=== PATIENT | male | born 1935 | race Caucasian/White ===

== ENCOUNTER 2017-11-01 11:38 | Emergency (ER) | payer MEDICARE, SELFPAY ==
[2017-11-01] VITALS (9 sets, daily range): BP systolic 92–135; BP diastolic 54–70; PULSE 101–117; RESP 16–20; TEMP 36.3–36.8; O2SAT 94–99; BMI 20.7
--- NOTE | 2017-11-01 | CT_ITS ---
CT abdomen pelvis wo con CLINICAL INDICATION: Abdominal pain with vomiting. History of colon cancer ORDERING PHYSICIAN: Mauro Hayes MD PATIENT AGE: 82 years COMPARISON: 09/29/2016 TECHNIQUE: Axial images obtained with sagittal and coronal reformats. PROCEDURE: Oral Contrast: None IV Contrast: None . FINDINGS: There is a subpleural 9 mm noncalcified nodule in the right middle lobe and an 8 mm noncalcified nodule in the right upper lobe laterally and inferiorly. There are atelectatic changes in the right lung base. Gallbladder is nonvisualized persistent surgically removed. The liver, spleen, and adrenal glands have an unremarkable unenhanced appearance. There is mild diffuse pancreatic atrophy. Postsurgical changes are present within the abdomen with multiple clips in the right upper quadrant. There is severe right hydronephrosis and hydroureter. Extensive femur hardening artifact is present in the pelvis from right hip prosthesis obscuring fine detail of the distal ureter. There is some thickening of the anterior aspect of the urinary bladder and probable thickening at the base of the urinary bladder.. Extensive postsurgical changes are present in the pelvis with increased soft tissue density in the perineal region with thickening of the presacral fat and increased density in the perirectal region. The thickening of the presacral fat appears slightly worse compared to the previous exam. There has been a prior left nephrectomy with partially calcified oval density in the renal bed. There has been prior partial colectomy small bowel sigmoid anastomosis. The sigmoid colon shows mild distention. There are distended loops of small bowel present throughout with air-fluid levels consistent with partial small bowel obstruction. Transition point is not identified. There are scattered small lymph nodes in the mesentery's. There is a new area of destruction involving the superior pubic ramus on the left medially in the inferior pubic ramus on the left medially there is also destructive process involving the mid aspect of the right inferior pubic ramus. These findings are consistent with metastatic disease in this patient with history of colon cancer. IMPRESSION: 1. At least 2 right-sided pulmonary nodules suspicious for metastasis in the right lower lobe and right upper lobe inferiorly 2. Severe right-sided hydronephrosis and hydroureter. There is thickening of at least the anterior aspect of the urinary bladder suspicious for neoplasm. There may be thickening also posteriorly difficult to evaluate due to artifact from the hip prosthesis. 3. There is increased soft tissue density in the inferior aspect of the pelvis. This is difficult to evaluate due to the overlying artifact however, this does appear more prominent than when compared to the previous study and is suspicious for neoplasm. This is at the base of the urinary bladder and perineal area and in the perirectal and presacral region. 4. Partial small bowel obstruction. Transition point is not identified. 5. Lytic lesions of the left superior and inferior pubic ramus and right inferior pubic ramus consistent with metastatic disease
--- NOTE | 2017-11-01 11:55 | [facility].EDGENADL ---
ED Disposition Clinical Impression: Partial small bowel obstruction Urinary tract infection Qualifiers: Urinary tract infection type: site unspecified Hematuria presence: with hematuria Qualified Code(s): N39.0 - Urinary tract infection, site not specified; R31.9 - Hematuria, unspecified Disposition: Xfer Short-Term Hosp Condition on Discharge: Fair Referrals: Peng Ray MD [Primary Care Provider] - - Critical Care Critical Care Time: No Attestation: On 11/01/17, the high probability of a clinically significant, sudden or life threatening deterioration of the following system(s) required my full and direct attention, intervention and personal management. The time I documented below is in addition to time spent performing reported procedures but includes the following listed in this critical care notation. Medical Decision Making Vital Signs: 11/01/17 11:47 Temperature 97.3 F L Temperature Source Temporal Artery Scan Pulse Rate [Right Brachial] 101 H Respiratory Rate 20 Blood Pressure [Right Arm] 97/58 Blood Pressure Mean [Right Arm] 71 Blood Pressure Source [Right Arm] Automatic Cuff Blood Pressure Position [Right Arm] Sitting 02 Sat by Pulse Oximetry 98 Oxygen Delivery Method Room Air - Lab Data Lab Results 11/01/17 12:03: WBC 17.7 H, RBC 2.97 L, Hgb 11.2 L, Hct 36.3 L, MCV 122.0 H, MCH 37.7 H, MCHC 30.9 L, RDW 17.2, Plt Count 499 H, MPV 7.8, Neut % (Auto) 90.2 H, Lymph % (Auto) 5.2 L, Swain % (Auto) 4.0, Eos % (Auto) 0.3, Baso % (Auto) 0.3, Neut # (Auto) 16.0 H, Lymph # (Auto) 0.9, Swain # (Auto) 0.7, Eos # (Auto) 0.1, Baso # (Auto) 0.1, Total Counted 100, Neutrophils % (Manual) 90 H, Lymphocytes % (Manual) 7 L, Monocytes % (Manual) 3, Platelet Estimate Normal, RBC Morphology Normal 11/01/17 12:03: Lactic Acid 2.5 H 11/01/17 12:55: Sodium 135 L, Potassium 4.9, Chloride 94 L, Carbon Dioxide 30, Anion Gap 15.9 H, BUN 47 H, Creatinine 5.34 H, Estimated Creat Clear 10, Estimated GFR 10 L*, Est GFR ( Amer) 13 L*, Glucose 149 H, Calcium 9.4, Total Bilirubin 0.6, AST 21, ALT 26, Alkaline Phosphatase 133 H, Total Protein 8.0, Albumin 2.4 L, Globulin 5.6 H, Albumin/Globulin Ratio 0.4 L 11/01/17 12:55: Troponin I < 0.02, Lipase 80 11/01/17 13:47: Urine Color Red, Urine Appearance Cloudy, Urine pH 8.0, Ur Specific Rison 1.020, Urine Protein 3+, Urine Glucose (UA) Negative, Urine Ketones Negative, Urine Blood 3+, Urine Nitrate Positive, Urine Bilirubin Negative, Urine Urobilinogen 0.2, Ur Leukocyte Esterase 3+ A, Urine RBC Tntc, Urine WBC 10-20, Ur Squamous Epith Cells None, Urine Bacteria Trace Result diagrams: 11/01/17 12:03 11/01/17 12:55 Orders (Tests/Meds): ED MEDICATIONS Generic Name Dose Route Start Last Admin Trade Name Freq PRN Reason Stop Dose Admin Levofloxacin/Dextrose 500 mg in 100 mls @ 100 mls/hr 11/01/17 14:34 Levaquin 500mg/100ml Premix IV 11/01/17 15:33 ONCE ONE Protocol Discontinued Medications Generic Name Dose Route Start Last Admin Trade Name Freq PRN Reason Stop Dose Admin Sodium Chloride 1,000 mls @ 999 mls/hr 11/01/17 12:15 11/01/17 12:17 Sod Chlor 0.9% 1000ml Bag IV 11/01/17 13:15 999 mls/hr .Q1H1M NLEY Administration Morphine Sulfate 4 mg 11/01/17 13:39 Morphine 4mg/Ml Syringe IV 11/01/17 13:40 ONCE ONE Ondansetron HCl 4 mg 11/01/17 12:06 11/01/17 12:16 Zofran 4mg/2ml Vial IV 11/01/17 12:07 4 mg ONCE ONE Administration ORDERS Category Date Time Status Blood Culture Stat Micro 11/01/17 12:03 Received Urine Culture Stat Micro 11/01/17 13:47 Received - CT Data CT Scan: Abdomen, Pelvis Time Received: 13:[address] Reviewed: Yes: I have viewed the radiologist's interpretation Findings Narrative: Partial small bowel obstruction. Apparent metastases in the base of the right lung, at least 2. Apparent metastases in the pubis of the pelvis. Findings consistent with bladder tumor. Right hydrone
[2017-11-01 12:33] LABS: Basophils # 0.1 K/mm3 (0-0.2); Basophils % 0.3 % (0.1-2.0); Eosinophils # 0.1 K/mm3 (0.0-0.4); Eosinophils % 0.3 % (0.1-12.0); Hematocrit 36.3 % (42.0-52.0); Hemoglobin 11.2 g/dL (14.1-18.0); Lymphocytes # 0.9 K/mm3 (0.7-4.5); Lymphocytes % 5.2 K/mm3 (10-50); Mean Corpuscular HGB Conc 30.9 g/dL (31.8-35.4); Mean Corpuscular Hemoglobin 37.7 pg (27.0-31.2); Mean Platelet Volume 7.8 fl (7.4-10.4); Monocytes # 0.7 K/mm3 (0.1-1.0); Neutrophils % 90.2 % (37.0-80.0); Platelet Count 499 K/mm3 (142-424); Red Blood Count 2.97 M/mm3 (4.60-6.20); Red Cell Distribution Width 17.2 % (11.5-17.5); White Blood Count 17.7 K/mm3 (4.8-10.8)
[2017-11-01 12:34] LABS: MANUAL DIFFERENTIAL MANUAL DIFFERENTIAL (MANUAL DIFF)
[2017-11-01 12:55] LABS: Lactic Acid 2.5 mmol/L (0.4-2.0)
[2017-11-01 13:18] LABS: Lymphocytes % 7 % (10-50); Monocytes % 3 % (2-9); Neutrophils % 90 % (42-76); Total Cells Counted 100
[2017-11-01 13:20] LABS: Platelet Estimate Normal; RBC Morphology Normal
[2017-11-01 13:20] LABS: Alanine Aminotransferase 26 U/L (12-78); Albumin Level 2.4 gm/dL (3.4-5.0); Albumin/Globulin Ratio 0.4 (1.1-1.8); Alkaline Phosphatase 133 U/L (46-116); Anion Gap 15.9 mEq/L (5-15); Aspartate Amino Transferase 21 U/L (15-37); Bilirubin,Total 0.6 mg/dL (0.2-1.0); Blood Urea Nitrogen 47 mg/dL (7-18); Calcium 9.4 mg/dL (8.5-10.1); Carbon Dioxide 30 mmol/L (21.0-32.0); Chloride 94 mmol/L (98-107); Creatinine Clearance Estimated 10 mL/min (0-300); Estimated Glomerular Filt Rate 10 ml/min (>60); GFR (African American) 13 ML/MIN (>60); Globulin 5.6 gm/dl (1.3-3.2); Glucose 149 mg/dL (74-106); Potassium 4.9 mmoL/L (3.5-5.1); Sodium 135 mmol/L (136-145)
[2017-11-01 13:24] LABS: Creatinine,Serum 5.34 mg/dL (0.70-1.30)
[2017-11-01 13:25] LABS: Lipase 80 u/L (73-393); Troponin I < 0.02 ng/ml (0.00-0.06)
--- NOTE | 2017-11-01 13:49 | PC.NURSE ---
ua sent to lab
--- NOTE | 2017-11-01 13:49 | PC.NURSE ---
Myriam spoke with dr. gupta office who will be returning call once is out of procedure.
[2017-11-01 13:54] LABS: Microscopic, Urine URINE MICROSCOPIC (MICROSCOPIC)
[2017-11-01 14:02] LABS: Appearance,Urine CLOUDY (Clear); Blood, Urine 3+ (Negative); Color,Urine RED (Yellow); Glucose,Urine (UA) Negative (Negative); Ketones,Urine Negative (Negative); Leukocyte Esterase,Urine 3+ (Negative); Nitrate,Urine POSITIVE (Negative); Protein,Urine 3+ (Negative); Urobilinogen,Urine 0.2 EU/dl (0.2)
[2017-11-01 14:13] LABS: Bilirubin,Urine Negative (Negative)
[2017-11-01 14:14] LABS: RBC,Urine TNTC #/hpf (0-3)
[2017-11-01 14:15] LABS: Bacteria,Urine Trace /lpf
--- NOTE | 2017-11-01 14:16 | PC.NURSE ---
dr levy spoke with dr gupta he wants him sent to [facility] , dr gupta is calling the hospitialist and they will call us back
--- NOTE | 2017-11-01 14:26 | PC.NURSE ---
dr gupta office called back and stated that their hospitalist would be calling up back with a bed assignment for pt at [facility].
--- NOTE | 2017-11-01 15:10 | PC.NURSE ---
Attempts x3 of NG tube placement were unsuccessful. Notified ER MD stated not to attempt further at this time.
--- NOTE | 2017-11-01 15:44 | PC.NURSE ---
spoke with [facility] bed placement nurse who stated she should have a bed assignment for us within an hour, once discharges are made from their facility they will call us back.
--- NOTE | 2017-11-01 15:50 | PC.NURSE ---
Bed coordinator staff called at this time, stated they do have a bed assignment for pt however have been asked per hospitalists to wait to give bed assignment until they notify them. stated will call back with assignment when available.
[2017-11-01 16:24] LABS: Reflex Lactic Add Lactic Reflex
[2017-11-01 17:10] LABS: Lactic Acid Follow Up (RFLX 1) 1.4 (0.4-2.0)
--- NOTE | 2017-11-01 17:28 | PC.NURSE ---
spoke with diana at [facility] bed placement at this time to check on status of bed assignment. states one of the other nurses will be called soon for report and to give bed assignment.
--- NOTE | 2017-11-01 17:48 | PC.NURSE ---
report called to Emily Fong RN at [facility] at this time.
--- NOTE | 2017-11-01 18:36 | PC.NURSE ---
verbal report given to [facility] staff at this time.
== END 2017-11-01 18:40 | disposition short-term general hospital (02) ==
PROVIDERS: Emergency Provider Emergency Medicine; Family Provider Family Medicine; PCP Family Medicine
DX: K56.690 Other partial intestinal obstruction (principal); N39.0 Urinary tract infection, site not specified; N13.30 Unspecified hydronephrosis; E10.9 Type 1 diabetes mellitus without complications; Z79.4 Long term (current) use of insulin; E78.5 Hyperlipidemia, unspecified; I10 Essential (primary) hypertension; N28.9 Disorder of kidney and ureter, unspecified; C67.9 Malignant neoplasm of bladder, unspecified; Z79.899 Other long term (current) drug therapy
CPT/HCPCS: 36415; 43760; 74176; 80053; 81001; 83605; 83690; 84484; 85007; 85025; 87040; 87086; 87088; 87186; 96365; 96367; 96374; 96375; 96376; 99285; J1956; J2405